=== PATIENT | male | born 1990 | race Caucasian/White ===

== ENCOUNTER 2016-07-16 13:38 | Inpatient (IN) | payer OTHER ==
--- NOTE | ~2016-07-16 | PA ---
Unit #: [id number] #: [id number] Patient: BEAN MCPHERSON [id number] [facility] [address] [place] [address] [id number] I MR#: [id number] NAME: BEAN MCPHERSON ROOM: P114 Age: 26 Sex: M Admission Date: 07/16/2016 : 1990 Date of Assessment: 07/16/2016 Attending Physician: Garrison Mcnair M.D. Admitting Physician: Garrison Mcnair M.D. Primary Care Physician: Primary Care Physician No PSYCHIATRIC ASSESSMENT DATE OF SERVICE 07/16/2016. IDENTIFYING DATA Mr. Mcpherson is a 26-year-old white male, who is a resident of [place], [place], and was brought to us accompanied by his and his mother. CHIEF COMPLAINT "I'm not doing good." HISTORY OF PRESENT ILLNESS Mr. Mcpherson is a 26-year-old white male, who was brought to the assessment by his mother and the patient refused to answer any questions, but kept saying that he had a fishing wire in his teeth and kept pulling at his teeth and gums were bleeding and he went into the bathroom and nursing staffs did have to come help to get him out, and the patient will only say that he needs to get the wire out of his teeth, and the patient's mother stated that the patient has a diagnosis of manic depressive and psychosis, in 2014 the patient got diagnosed and he has had several inpatient stays due to psychotic episodes and suicide attempts. The patient's mother reports that the patient worked three jobs to support his and two minor children and he has been working nonstop and has been drinking a lot of Red Bull and that he has not had any sleep in the last 3 days and he began last night picking at his teeth and gums saying that he has fishing wire in them. The patient's called the patient's mother for help today and he then agreed to come to the hospital, but once he got here he got upset and stated he thought that this was the dentist's office. He was then seen to be agitated, irritable, angry, hostile, and belligerent and was becoming a safety concern and was taken straight to the unit and an intramuscular injection of Haldol and Benadryl were given to cut down on his agitation and aggression and to ensure his and others around him safety. SUBSTANCE ABUSE HISTORY The patient reports history of alcohol and cannabis abuse in the past. PAST PSYCHIATRIC HISTORY The patient has had a history of inpatient psychiatric hospitalizations at [facility] and several other facilities and has been diagnosed and treated for bipolar disorder. Review of the medical records indicate that currently he has been noncompliant with medication and as such has been decompensating. Unit #: [id number] #: [id number] Patient: BEAN MCPHERSON PAST MEDICAL HISTORY The patient's medical history is insignificant. ALLERGIES No known medication allergies. CURRENT MEDICATIONS None. PERSONAL AND SOCIAL HISTORY A 26-year-old white male, who reports that he has been and lives at home with his and his two children and has fairly decent social support system. MENTAL STATUS EXAMINATION Young white male, who was casually dressed with fair personal hygiene, appears to be in no acute distress or discomfort. He was awake and alert on interaction with intact orientation to time, place, and person. His mood was anxious and depressed with a congruent affect. His speech was slow and restricted in content. His thought processes were disorganized with some looseness of associations and flight of ideas and paranoid ideations and delusional behavior. His insight and judgment remain significantly impaired. DIAGNOSTIC IMPRESSION Psychiatric: Bipolar disorder, most recent episode manic with psychosis. Medical: None. Stressors: Moderate psychosocial stressors. TREATMENT PLAN 1. The patient has presented with a history of mood disorder and has been decompensating and will need inpatient hospitalization for safety and stabilization. We will start him back on his home medications and we will adjust the medications and monitor response. 2. Supportive therapy was provided to the patient. ESTIMATED LENGTH OF STAY 5 to 7 days. ABILITY TO HELP SELF Limited. WILLINGNESS TO HELP SELF The patient appears to be willing to help self. STRENGTHS 1. Communicative. 2. Cooperative. PROBLEMS 1. Chronic dysphoric symptoms. 2. Poor social support system. DISCHARGE CRITERIA This will be contingent upon the patient's ability to show resolution of his kaycee and psychosis and his ability to stay safe to himself, particularly after discharge from the hospital. Unit #: [id number] #: [id number] Patient: BEAN MCPHERSON Dictated by... Lauri Boyd/ha TD: 07/17/2016 14:02 JOB #: [id number] PSYCHIATRIC ASSESSMENT Page 1 of 1 X Garrison Mcnair MD PSYCHIATRIC ASSESSMENT
--- NOTE | ~2016-07-16 | HP ---
Unit #: [id number] #: [id number] Patient: BEAN MCPHERSON [id number] [place] [address] [id number] MR#: [id number] NAME: BEAN MCPHERSON ROOM: P114 Age: 26 Sex: M Admission Date: 07/16/2016 : 1990 Attending Physician: Garrison Mcnair M.D. Admitting Physician: Garrison Mcnair M.D. Primary Care Physician: Primary Care Physician No HISTORY AND PHYSICAL HISTORY OF PRESENT ILLNESS The patient is a 26-year-old male admitted to [address] [place] [address] on 07/16/2016, for psychosis. PAST MEDICAL HISTORY Patient denies PAST SURGICAL HISTORY Patient denies SOCIAL HISTORY He works 3 jobs. He lives with his and 2 kids. He smokes half a pack of cigarettes daily. FAMILY MEDICAL HISTORY Noncontributory ALLERGIES No known drug allergies CURRENT MEDICATIONS The patient is not on any home medications. REVIEW OF SYSTEMS CONSTITUTIONAL: No fever or chills. HEENT: Denies any sore throat, ear pain or runny nose. CARDIOVASCULAR: Denies chest pain, irregular heart rhythm or palpitations. CHEST: Denies shortness of breath or cough. No hemoptysis. GASTROINTESTINAL: Denies nausea, vomiting, diarrhea or chronic constipation. ENDOCRINE: Denies history of increased thirst or urination. No recent significant weight loss or gain. GENITOURINARY: Denies dysuria, frequency, or hematuria. SKIN: Denies any rashes. HEMATOLOGIC: Denies history of increased bleeding or bruising. MUSCULOSKELETAL: Denies any hot, swollen joints. No generalized muscle pain. NEUROLOGIC: Denies problems with vision or speech. No frequent, severe headaches. No numbness, tingling or weakness in any extremities. Denies loss of bladder or bowel control. PHYSICAL EXAMINATION GENERAL: He is awake, alert, and oriented in no acute distress. Unit #: [id number] #: [id number] Patient: BEAN MCPHERSON VITAL SIGNS: Temperature 99.1, heart rate 84, respirations 20, blood pressure 116/49 HEIGHT: 5 feet 7 inches WEIGHT: 212 pounds SKIN: Warm and dry without rash or lesion. HEENT: Normocephalic. TMs not viewed. Oral and nasal passages clear. Conjunctivae clear. PERRLA. EOMs intact. NECK: Supple without lymphadenopathy or thyromegaly. HEART: Regular rate and rhythm without murmur. LUNGS: Clear. ABDOMEN: Soft, nontender. : Not done. EXTREMITIES: No evidence of cyanosis, clubbing or edema. Moves all without focal deficit. NEUROLOGICAL: Grossly within normal limits. Cranial Nerves: II: Visual leon are intact. III, IV AND : Extraocular movements are intact. Pupils are equal, round and reactive to light. V: Facial sensation is grossly normal. VII: Facial movements and expression are normal. VIII: Auditory acuity grossly intact. IX, X: Uvula is midline. Phonation is normal. XI: Patient shrugs shoulders and turns head normally. XII: Tongue protrudes in the midline. Sensory and Motor Function: Sensory and motor sensation is grossly normal. Motor: moves all extremities well. IMPRESSION 1. Psychiatric admission. 2. Nicotine dependence RECOMMENDATIONS 1. Psychiatric, per psychiatrist. 2. Medical, no contraindications to participating in facility activities. MEDICAL PROGNOSIS Good MEDICAL CONDITION Stable Dictated by... Cassy Johnson/christine TD: 07/17/2016 16:17 JOB #: [id number] Unit #: [id number] #: [id number] Patient: BEAN MCPHERSON HISTORY AND PHYSICAL Page 1 of 1 X PETER GUZMAN APRN HISTORY AND PHYSICAL
--- NOTE | ~2016-07-16 | DS ---
Unit #: [id number] #: [id number] Patient: BEAN MCPHERSON [id number] [place] [address] [id number] MR#: [id number] NAME: BEAN MCPHERSON ROOM: 14 Age: 26 Sex: M Admission Date: 07/16/2016 : 1990 Discharge Date: 07/19/2016 Attending Physician: Garrison Mcnair M.D. Primary Care Physician: Primary Care Physician No DISCHARGE SUMMARY IDENTIFYING DATA Mr. Mcpherson is a 26-year-old white male, who is a resident of [place], [place], and was accompanied by his and his mother. DISCHARGE DIAGNOSES Psychiatric: Bipolar disorder, most recent episode, manic with psychosis. Medical: None. Stressors: Moderate psychosocial stressors. HISTORY OF PRESENT ILLNESS Please see initial psychiatric evaluation for details. PAST PSYCHIATRIC HISTORY Please see initial psychiatric evaluation for details. PAST MEDICAL HISTORY Please see initial psychiatric evaluation for details. HOSPITAL COURSE The patient was admitted to the adult psychiatric unit at [facility] and was oriented to the hospital environment and routine p.r.n. medications and upon initial presentation, the patient was seen to be acutely psychotic and manic and agitated and was given intramuscular injection of Haldol and he finally slept as he has been awake for few days and then was seen to be doing much better the next day and Seroquel 100 mg was started. He was able to show a fairly decent therapeutic response with resolution of kaycee and psychosis and was seen to be polite, pleasant, and cooperative with treatment recommendations and was willing to continue treatment on an outpatient basis and as such, it was decided that he will be discharged home and will continue treatment on an outpatient basis. DISCHARGE MEDICATIONS Seroquel 100 mg at bedtime for bipolar. DISCHARGE CONDITION Stable. PROGNOSIS Fair. Dictated by... Garrison Mcnair M.D. Unit #: [id number] #: [id number] Patient: BEAN MCPHERSON IAA/modl TD: 07/19/2016 06:59 JOB #: [id number] DISCHARGE SUMMARY Page 1 of 1 X Garrison Mcnair MD DISCHARGE SUMMARY
--- NOTE | ~2016-07-16 | PN ---
Unit #: [id number] #: [id number] Patient: BEAN KRAFT [id number] [facility] [address] [place] [address] [id number] I MR#: [id number] NAME: BEAN KRAFT ROOM: 14 Age: 26 Sex: M Admission Date: 07/16/2016 : 1990 Attending Physician: Garrison Mcnair M.D. Admitting Physician: Garrison Mcnair M.D. Primary Care Physician: Primary Care Physician Rachele GARAY PROGRESS NOTES DATE July 18, 2016 DISCUSSION Mr. Kraft is a 26-year-old white male, who was seen today and chart was reviewed and the case was discussed with the staff. He has been doing fairly well with improvement in depression and anxiety, and reports that he slept better last night with Seroquel, though he still appears to be showing some persistent kaycee-like symptoms. MENTAL STATUS EXAMINATION Young white male, who was casually dressed with fair personal hygiene and appears to be in no acute distress or discomfort. He was awake and alert on interaction with intact orientation. His mood is anxious with a congruent affect. He denies any suicidal or homicidal ideations. His insight and judgment remain slightly impaired. TREATMENT PLAN 1. We will continue him on his current medications and treatment protocol, and will monitor his response to the medications, and make further adjustments as needed. 2. We will continue to followup. Dictated by... Lauri Boyd/chandan TD: 07/18/2016 12:27 JOB #: [id number] Unit #: [id number] #: [id number] Patient: BEAN KRAFT [facility] PROGRESS NOTES Page 1 of 1 X Garrison Mcnair MD X PROGRESS NOTE
[~2016-07-16 13:38] MED LIST: NO MEDICATIONS
[2016-07-18 09:27] LABS: BASOPHIL% 0.6 % (0-2.5); EOSINOPHIL# 0.2 X10e3 (0-0.7); EOSINOPHIL% 2.9 % (0.0-7.0); HEMATOCRIT 47.3 % (38.0-50.0); LYMPHOCYTE# 1.8 X10e3 (1.0-3.5); LYMPHOCYTE% 24.5 % (17.0-45.0); MEAN CELL VOLUME 84.7 FL (83-96); MEAN CORPUSCULAR HEMOGLOBIN 28.6 PG (28-34); MEAN CORPUSCULAR HGB CONC 33.8 g/dL (30-36); MEAN PLATELET VOLUME 8.5 FL (6.5-11.5); MONOCYTE# 0.8 X10e3 (0-1.0); MONOCYTE% 11.1 % (3.0-12.0); NEUTROPHIL# 4.4 X10e3 (1.5-7.1); NEUTROPHIL% 60.9 % (40-75); PLATELET COUNT 274 X10e3 (140-420); RED BLOOD COUNT 5.58 X10e (3.90-5.60); RED CELL DISTRIBUTION WIDTH 12.8 % (11.0-15.5); WHITE BLOOD COUNT 7.2 X10e3 (4.0-10.5)
[2016-07-18 09:29] LABS: DIFF IND NO
[2016-07-18 09:57] LABS: BILIRUBIN,TOTAL 1.3 mg/dL (0.2-2.0); BUN/CREATININE RATIO 18.75; CALCIUM SERUM 10.1 mg/dL (8.4-10.2); CREATININE SERUM 0.8 mg/dL (0.6-1.4); GLOM FILT RATE Estimated 121.6 mL/min (>60); POTASSIUM 4.4 mmol/L (3.5-5.1); PROTEIN TOTAL SERUM 7.7 g/dL (6.0-8.3)
== END 2016-07-19 10:45 | disposition home or self-care (01) | DRG 885 ==
LOC: P1S 13:38
PROVIDERS: Psychiatry & Neurology Psychiatry
DX: F31.2 Bipolar disorder, current episode manic severe with psychotic features (principal); Z91.14 Patient's other noncompliance with medication regimen; F17.210 Nicotine dependence, cigarettes, uncomplicated
CPT/HCPCS: 80053; 84443; 85025; J1200; J1630